=== PATIENT | female | born 1950 | race Caucasian/White ===

== ENCOUNTER → 2019-01-29 | Outpatient (CLI) | payer OTHER ==
[~2019-01-29] MED LIST: Aspir 8181 MG PO; CEFP200 PO; CIPR500 PO; Excedrin Extra1 EACH PO; IBUP400 PO; K-Dur20 MEQ PO; LEVSOD100 PO; NITR100CA PO; OMEPRAZOLE20 MG PO; ONDA4 PO; Prilosec Otc20 MG PO; THYR60 PO; XARELTO15 MG PO
== END ==
LOC: LAB 13:08 → LAB SHORT 13:08
DX: R53.83 Other fatigue (principal)
CPT/HCPCS: 84443

== ENCOUNTER 2019-02-27 12:22 | Inpatient (IN) | payer OTHER ==
[~2019-02-27] VITALS: Ht 154.9 cm; Wt 65.0 kg
[~2019-02-27 12:22] MED LIST changes: -Excedrin Extra1 EACH PO; -LEVSOD100 PO; -OMEPRAZOLE20 MG PO; -XARELTO15 MG PO
[2019-02-27 13:03] LABS: BASOPHILS ABSOLUTE AUTO 0.12 K/mm3 (0.00-0.23); BASOPHILS PERCENT AUTO 2 % (0-2); EOSINOPHILS ABSOLUTE AUTO 0.65 K/mm3 (0.00-0.68); EOSINOPHILS PERCENT AUTO 9 % (0-6); Hemoglobin 13.4 g/dL (11.5-16.0); IMMATURE GRAN ABSOLUTE AUTO 0.02 K/mm3 (0.00-0.10); IMMATURE GRAN PERCENT AUTO 0 % (0-1); LYMPHOCYTES ABSOLUTE AUTO 2.11 K/mm3 (0.84-5.20); LYMPHOCYTES PERCENT AUTO 28 % (21-46); MONOCYTES ABSOLUTE AUTO 0.46 K/mm3 (0.16-1.47); MONOCYTES PERCENT AUTO 6 % (4-13); Mean Corpuscular HGB 32.7 pg (26.0-34.0); Mean Corpuscular HGB Conc 33.5 g/dL (31.5-36.5); Mean Corpuscular Volume 98 fL (80-100); Mean Platelet Volume 8.3 fL (9.1-12.4); NEUTROPHILS ABSOLUTE AUTO 4.06 K/mm3 (1.96-9.15); NEUTROPHILS PERCENT AUTO 55 % (41-73); Platelet Count 522 K/mm3 (150-400); RDW Coefficient Variation 16.2 % (11.7-14.2); RDW Standard Deviation 58.6 fL (35.1-46.3); White Blood Cell Count 7.42 K/mm3 (4.00-11.30)
[2019-02-27 13:25] LABS: Alanine Aminotransfer (ALT/SGP 25 U/L (12-78); Albumin, Blood 3.9 g/dL (3.4-5.0); Alk Phos 70 U/L (50-136); Anion Gap 11 mmol/L (6-16); Aspartate Aminotrans (AST/SGOT 31 U/L (12-37); Bilirubin, Total 0.2 mg/dL (0.1-1.0); Blood Urea Nitrogen 8 mg/dL (8-24); Bun/Creatinine Ratio 7.8 (12.0-20.0); CO2, Blood 22 mmol/L (21-32); Calcium, Blood 9.8 mg/dL (8.5-10.1); Chloride, Blood 105 mmol/L (98-108); Creatinine, Blood 1.03 mg/dL (0.40-1.00); Glomerular Filtration Rate 57 (60-); Glucose, Blood 131 mg/dL (70-99); Potassium, Blood 2.9 mmol/L (3.5-5.5); Sodium, Blood 138 mmol/L (136-145); Total Protein, Blood 7.9 g/dL (6.4-8.2); Troponin I <0.015 ng/mL (0.000-0.040)
[2019-02-27] MEDS ORDERED: LEVSOD100 PO (15:28)
[2019-02-27 15:54] LABS: Free Thyroxine 1.08 ng/dL (0.70-1.60)
[2019-02-27 15:56] LABS: Thyroid Stimulating Hormone 9.76 uIU/mL (0.360-4.800)
[2019-02-27 16:52] LABS: Source, Urine Clean Catch
[2019-02-27 16:58] LABS: Bilirubin, Urine Neg (Neg); Blood, Urine Neg (Neg); Glucose Qualitative, Urine Neg (Neg); Ketones, Urine 3+ (Neg); Leukocyte Esterase, Urine 1+ (Neg); Nitrite, Urine Neg (Neg); Protein, Urine 1+ (Neg); Urobilinogen, Urine NORM (Normal)
[2019-02-27 17:05] LABS: Appearance, Urine Clear (Clear); Color, Urine Yellow (P-Yellow)
[2019-02-27 17:06] LABS: Bacteria Mod /hpf; Mucus Mod (0-Heavy); Red Blood Cells, Urine 0-2 /hpf (0-2); Squamous Epithelial Cells Few /hpf (Few)
[2019-02-27] MEDS ORDERED: OMEPRAZOLE20 MG PO (18:05)
[2019-02-27] MEDS ORDERED: Excedrin Extra1 EACH PO (19:13)
[2019-02-28 05:16] LABS: BASOPHILS ABSOLUTE AUTO 0.13 K/mm3 (0.00-0.23); BASOPHILS PERCENT AUTO 1 % (0-2); EOSINOPHILS ABSOLUTE AUTO 0.86 K/mm3 (0.00-0.68); EOSINOPHILS PERCENT AUTO 8 % (0-6); Hematocrit 36.9 % (33.0-51.0); Hemoglobin 11.9 g/dL (11.5-16.0); IMMATURE GRAN ABSOLUTE AUTO 0.03 K/mm3 (0.00-0.10); IMMATURE GRAN PERCENT AUTO 0 % (0-1); LYMPHOCYTES ABSOLUTE AUTO 3.16 K/mm3 (0.84-5.20); LYMPHOCYTES PERCENT AUTO 28 % (21-46); MONOCYTES PERCENT AUTO 7 % (4-13); Mean Corpuscular HGB 32.3 pg (26.0-34.0); Mean Corpuscular HGB Conc 32.2 g/dL (31.5-36.5); Mean Corpuscular Volume 100 fL (80-100); Mean Platelet Volume 8.6 fL (9.1-12.4); NEUTROPHILS ABSOLUTE AUTO 6.29 K/mm3 (1.96-9.15); NEUTROPHILS PERCENT AUTO 56 % (41-73); Platelet Count 458 K/mm3 (150-400); RDW Coefficient Variation 16.9 % (11.7-14.2); RDW Standard Deviation 61.6 fL (35.1-46.3); Red Blood Cell Count 3.68 M/mm3 (3.80-5.20); White Blood Cell Count 11.27 K/mm3 (4.00-11.30)
[2019-02-28 05:50] LABS: Bun/Creatinine Ratio 5.7 (12.0-20.0); Calcium, Blood 8.5 mg/dL (8.5-10.1); Creatinine, Blood 1.06 mg/dL (0.40-1.00); Potassium, Blood 3.4 mmol/L (3.5-5.5)
--- NOTE | 2019-02-28 07:00 | NUR ---
ASSUMED CARE OF PT- BEDSIDE REPORT COMPLETED WITH NIGHT RN JOSÉ MIGUEL. PT ADMITTED IN THE NIGHT FOR UTI AND POSSIBLE SEPSIS. PER REPORT PT HAS A SMALL PE AT THE BASE OF ONE LUNG, PT STATED SHE HAS BEEN HAVIN INCREASED SOB OVER THE PAST FEW DAYS. PT HAS A UTI WITH URINARY FREQUENCY. PT IS CURRENTLY ON IVF AT 100ML PER HOURPT STATES SHE HAS NEUROPATHY IN BLE. PT PLEASENT WITH NO S&S OF DISTRESS NOTED ON ROOM MOHSEN AT THIS TIME. WILL ASSESS SHORTLY.
--- NOTE | 2019-02-28 07:10 | NUR ---
a+o family in room, bp controlled with medication, prin in abdm remains but is controlled with medication, call light in reach, rm air able to make needs known
--- NOTE | 2019-02-28 11:14 | NUR ---
Echocardiogram completed.
--- NOTE | 2019-02-28 18:16 | NUR ---
SHIFT SUMMARY- PT HAS HAD NO ACUTE CHANGES T/O THE DAY. RECIEVED POSSITIVE BLOOD CULTURES TODAY SO NEW ABX WERE STARTED. PT APPEARS TO BE GETTING STRONGER T/O THE SHIFT SHE IS NOW INDEPENDENT TO THE BSC. DENIES ANY NEED FOR PAIN MEDICATION, STATED AT ONE POINT THAT HER BACK WAS HURTING BUT DECLINED MEDICATION. PT CURRENTLY SITTING UP IN BED, CALL LIGHT IN REACH, BROTHER AT THE BEDSIDE.
--- NOTE | 2019-03-01 04:06 | NUR ---
SHIFT SUMMARY: NO ACUTE CHANGES THIS SHIFT. PT DENIES N/V AND PAIN. J CARLOS REG DIET. SALINE LOCKED EXCEPT FOR IV ABX. PT OUT OF BED INDEPENDENTLY TO BEDSIDE COMMODE. PT REPORTS MILD BURNING DURING URINATION AND FREQUENCY. SOB WITH EXERTION. GIVEN EXCREDIN PER EMAR FOR C/O HEADACHE THIS MORNING. PT RESTING AT THIS TIME.
[2019-03-01 04:26] LABS: Hematocrit 31.2 % (33.0-51.0); Hemoglobin 10.2 g/dL (11.5-16.0); Mean Corpuscular HGB 32.7 pg (26.0-34.0); Mean Corpuscular HGB Conc 32.7 g/dL (31.5-36.5); Mean Corpuscular Volume 100 fL (80-100); Mean Platelet Volume 8.8 fL (9.1-12.4); Platelet Count 420 K/mm3 (150-400); RDW Coefficient Variation 17.2 % (11.7-14.2); RDW Standard Deviation 62.4 fL (35.1-46.3); Red Blood Cell Count 3.12 M/mm3 (3.80-5.20); White Blood Cell Count 8.28 K/mm3 (4.00-11.30)
[2019-03-01 04:47] LABS: Bun/Creatinine Ratio 4.6 (12.0-20.0); Calcium, Blood 8.4 mg/dL (8.5-10.1); Creatinine, Blood 1.08 mg/dL (0.40-1.00); Magnesium, Blood 2.1 mg/dL (1.6-2.4); Potassium, Blood 3.6 mmol/L (3.5-5.5)
--- NOTE | 2019-03-01 16:27 | NUR ---
ON PT ROUNDING PT STATED THAT HER BACK WAS UNCOMFORTABLE D/T THE BED, ASSISTED HER TO A RECLINER AT THE BEDSIDE WITH A PILLOW AND HEATING PAD ON THE AFFECTED AREA. PT STATED IT IS ALREADY FEELING BETTER, WILL CTM.
--- NOTE | 2019-03-01 17:53 | NUR ---
SHIFT SUMMARY- PT HAS HAD NO ACUTE CHANGES T/O THE SHIFT. SEE PREVIOUS NOTES FOR DETAILS. POSSIBLE DC HOME TOMORROW ON ORAL ABX AND PLAVIX.
[2019-03-02 04:40] LABS: BASOPHILS ABSOLUTE AUTO 0.11 K/mm3 (0.00-0.23); BASOPHILS PERCENT AUTO 1 % (0-2); EOSINOPHILS ABSOLUTE AUTO 1.39 K/mm3 (0.00-0.68); EOSINOPHILS PERCENT AUTO 17 % (0-6); Hematocrit 32.5 % (33.0-51.0); Hemoglobin 10.6 g/dL (11.5-16.0); IMMATURE GRAN ABSOLUTE AUTO 0.02 K/mm3 (0.00-0.10); IMMATURE GRAN PERCENT AUTO 0 % (0-1); LYMPHOCYTES ABSOLUTE AUTO 2.56 K/mm3 (0.84-5.20); LYMPHOCYTES PERCENT AUTO 30 % (21-46); MONOCYTES ABSOLUTE AUTO 0.62 K/mm3 (0.16-1.47); MONOCYTES PERCENT AUTO 7 % (4-13); Mean Corpuscular HGB 32.2 pg (26.0-34.0); Mean Corpuscular HGB Conc 32.6 g/dL (31.5-36.5); Mean Corpuscular Volume 99 fL (80-100); Mean Platelet Volume 8.8 fL (9.1-12.4); NEUTROPHILS ABSOLUTE AUTO 3.71 K/mm3 (1.96-9.15); NEUTROPHILS PERCENT AUTO 44 % (41-73); Platelet Count 428 K/mm3 (150-400); RDW Standard Deviation 61.8 fL (35.1-46.3); Red Blood Cell Count 3.29 M/mm3 (3.80-5.20); White Blood Cell Count 8.41 K/mm3 (4.00-11.30)
[2019-03-02 05:05] LABS: Bun/Creatinine Ratio 10.3 (12.0-20.0); Calcium, Blood 8.8 mg/dL (8.5-10.1); Creatinine, Blood 1.07 mg/dL (0.40-1.00); Potassium, Blood 3.6 mmol/L (3.5-5.5)
--- NOTE | 2019-03-02 05:56 | NUR ---
Rn summary: Patient is alert and oriented. She is up to BSC with minimal assist. Pt does have trouble with her Rt leg being weaker than the left. Pt has voided light yellow urine. Pt has had some SOB when getting up but feels it is getting better. Pt O2 sats 98% on room air. No resp distress. Pt has been medicated x 2 with excedrin for headache and back and leg discomfort. Tele continues to show SR in the 80's. Call light in reach. Calls appropriately.
[2019-03-02 08:41] LABS: Percent Saturation 22.3 % (15.0-50.0)
--- NOTE | 2019-03-02 11:30 | NUR ---
PER THEATRICAL DRESSER CAN D'C TELE HAS NOT BEEN ABNORMAL. CALL TO KIMBERLYN PARKER TO D'C.
--- NOTE | 2019-03-02 18:09 | NUR ---
ALERT. ORIENTED. TO BATHROOM W/WALKER AND STANDBY ASSIST. MEDICATED ONCE FOR HEADACHE W/GOOD RESULTS. IV PATENT. TELE D'C. PER P.T. BACK TO BASELINE. UNLABORED RESPIRATIONS. ABLE TO MAKE NEEDS KNOWN. WCTM.
[2019-03-03 04:52] LABS: BASOPHILS PERCENT AUTO 1 % (0-2); EOSINOPHILS ABSOLUTE AUTO 1.29 K/mm3 (0.00-0.68); EOSINOPHILS PERCENT AUTO 17 % (0-6); Hematocrit 33.9 % (33.0-51.0); Hemoglobin 10.8 g/dL (11.5-16.0); IMMATURE GRAN ABSOLUTE AUTO 0.03 K/mm3 (0.00-0.10); IMMATURE GRAN PERCENT AUTO 0 % (0-1); LYMPHOCYTES ABSOLUTE AUTO 2.22 K/mm3 (0.84-5.20); LYMPHOCYTES PERCENT AUTO 30 % (21-46); MONOCYTES ABSOLUTE AUTO 0.66 K/mm3 (0.16-1.47); MONOCYTES PERCENT AUTO 9 % (4-13); Mean Corpuscular HGB 32.2 pg (26.0-34.0); Mean Corpuscular HGB Conc 31.9 g/dL (31.5-36.5); Mean Corpuscular Volume 101 fL (80-100); NEUTROPHILS ABSOLUTE AUTO 3.16 K/mm3 (1.96-9.15); NEUTROPHILS PERCENT AUTO 42 % (41-73); Platelet Count 414 K/mm3 (150-400); RDW Standard Deviation 63.3 fL (35.1-46.3); Red Blood Cell Count 3.35 M/mm3 (3.80-5.20); White Blood Cell Count 7.46 K/mm3 (4.00-11.30)
--- NOTE | 2019-03-03 05:27 | NUR ---
Rn summary: Patient is alert and oriented. Pt is moving better and is steadier on her feet. Pt still gets a little SOB when walking to and from bathroom. Pt states she has not had a BM since admit, did have some prune juice earlier. Will get order for something in am. Pt has rested on and off. Does c/o tension BACA this am, will medicate with excedrin when available from pharmacy. VS stable. Pt uses call light approriately.
--- NOTE | 2019-03-03 05:31 | NUR ---
Rn summary: Patient is alert and oriented. She is D.D. but appropriate. Pt has walked to the x2 this shift, did pass some liguid but it was more clear yellow, does have a deal cath that is draining well. Pt abdomen is sl more distended this am. Audible Bowel tones this am. Pt denies discomfort. She needs some assist to turn and get out of bed due to large abdomen. Pt is otherwise unchanged. She has tolerated clear liquids but has only had 1 sm glass of water for us tonight. Call light in reach. Continues with clinamix at 75cc/hr.
--- NOTE | 2019-03-03 07:40 | NUR ---
ADVISED PATIENT WITH NO B.M. SINCE ADMIT. TRIED PRUNE JUICE, APPLE JUICE AND MELTED BUTTER YESTERDAY, BUT COME TO FINE OUT SHE DID NOT DRINK MUCH OF IT. MD WILL CHECK CHART AND ORDER MEDS.
--- NOTE | 2019-03-03 07:45 | NUR ---
CARE MANAGEMENT ADVISED PATIENT; HOMELESS,NO PCP AND GOING HOME ON XARELTO. THEY WILL TAKE A LOOK AT CHART TO SEE WHAT THEY CAN DO.
--- NOTE | 2019-03-03 18:30 | NUR ---
ALERT. ORIENTED. STEADY GAIT WITH WALKER IN ROOM. NO B.M SINCE ADMIT AND HAVE TRIED MEDS AND JUICE. REFUSED SUPPOSITORY AT THIS TIME. UNLABORED RESPIRATIONS. POSS D'C TOMORROW. WCTM.
[2019-03-04 03:55] LABS: BASOPHILS ABSOLUTE AUTO 0.12 K/mm3 (0.00-0.23); BASOPHILS PERCENT AUTO 2 % (0-2); EOSINOPHILS ABSOLUTE AUTO 1.32 K/mm3 (0.00-0.68); EOSINOPHILS PERCENT AUTO 16 % (0-6); Hematocrit 34.6 % (33.0-51.0); Hemoglobin 10.9 g/dL (11.5-16.0); IMMATURE GRAN ABSOLUTE AUTO 0.02 K/mm3 (0.00-0.10); IMMATURE GRAN PERCENT AUTO 0 % (0-1); LYMPHOCYTES ABSOLUTE AUTO 2.02 K/mm3 (0.84-5.20); LYMPHOCYTES PERCENT AUTO 25 % (21-46); MONOCYTES ABSOLUTE AUTO 0.71 K/mm3 (0.16-1.47); MONOCYTES PERCENT AUTO 9 % (4-13); Mean Corpuscular HGB 33.1 pg (26.0-34.0); Mean Corpuscular HGB Conc 31.5 g/dL (31.5-36.5); Mean Platelet Volume 8.5 fL (9.1-12.4); NEUTROPHILS PERCENT AUTO 49 % (41-73); Platelet Count 392 K/mm3 (150-400); RDW Coefficient Variation 16.9 % (11.7-14.2); RDW Standard Deviation 66.3 fL (35.1-46.3); Red Blood Cell Count 3.29 M/mm3 (3.80-5.20); White Blood Cell Count 8.19 K/mm3 (4.00-11.30)
[2019-03-04 04:01] LABS: Mean Corpuscular Volume 105 fL (80-100)
--- NOTE | 2019-03-04 04:14 | NUR ---
SHIFT SUMMARY PT HAS RESTED ON AND OFF T/O THE NIGHT. SHE DENIES NEEDS MOST OF THE NIGHT. SHE STILL HAS NOT BEEN ABLE TO HAVE A BM. SHE HAS ATTEMPTED SEVERAL TIMES. SHE HAS HAD SOME CRAMPING. PT OFFERED PRUNE JUICE WELL BUT DECLINED. PT HAS BEEN UP AND AMBULATING IN THE ROOM INDEPENDENTLY WITH A FWW. VITALS STABLE. IV ABX INFUSED PER ORDERS. PT BROTHER AT BEDSIDE T/O THE NIGHT. WILL CONTINUE TO MONITOR AND REPORT TO ONCOMING RN.
[2019-03-04 04:18] LABS: Alanine Aminotransfer (ALT/SGP 28 U/L (12-78); Albumin, Blood 2.8 g/dL (3.4-5.0); Albumin/Globulin Ratio 0.8 (0.8-1.8); Alk Phos 54 U/L (50-136); Anion Gap 7 mmol/L (6-16); Aspartate Aminotrans (AST/SGOT 30 U/L (12-37); Bilirubin, Total 0.1 mg/dL (0.1-1.0); Blood Urea Nitrogen 14 mg/dL (8-24); Bun/Creatinine Ratio 15.7 (12.0-20.0); CO2, Blood 24 mmol/L (21-32); Calcium, Blood 8.9 mg/dL (8.5-10.1); Chloride, Blood 112 mmol/L (98-108); Creatinine, Blood 0.89 mg/dL (0.40-1.00); Globulin, Blood 3.5 g/dL (2.2-4.0); Glomerular Filtration Rate >60 (60-); Glucose, Blood 91 mg/dL (70-99); Magnesium, Blood 2.2 mg/dL (1.6-2.4); Potassium, Blood 3.9 mmol/L (3.5-5.5); Sodium, Blood 143 mmol/L (136-145); Total Protein, Blood 6.3 g/dL (6.4-8.2)
[2019-03-04] MEDS ORDERED: XARELTO15 MG PO (11:41)
--- NOTE | 2019-03-04 13:06 | NUR ---
DISCHARGE INSTRUCTIONS REVIEWED WITH PATIENT AND QUESTIONS ANSWERED. PATIENT EXPRESSES CONCERNS WITH BILL SHE HAS NO INSURANCE. CONTACTED ADMITTING AND PATIENT IS TO STOP AT ADMITTING DESK UPON DISCHARGE. SPOKE WITH PATIENT AND HER BROTHER REGARDING STOP IN ADMISSIONS AND THEY WILL DO SO. PATIENT HAS XARELTO COUPON WHICH IS GOOD FOR 1 MONTH OF FREE MEDICATION
--- NOTE | 2019-03-04 15:10 | NUR ---
7808 DISCHARGED DISCHARGED ACCOMPANIED BY HER BROTHER. PATIENT TELLS ME THEY ARE GOING TO RENT A HOTEL ROOM TO STAY AT UNTIL ABLE TO OBTAIN AN APARTMENT. DISCUSSED WITH PATIENT THE IMPORTANCE OF TAKING MEDS PRESCRIBED AND THAT IF SHE IS UNABLE TO AFFORD MEDS SHE SHOULD CONTACT [facility] TO DISCUSSS POSSIBLE ALTERNATIVE MEDS. SPOKE WITH FEED RESEARCH AIDE AT [facility] OFFICE AND DISCUSSED THAT PATIENT IS SELF PAY AND IS CONCERNED ABOUT BEING ABLE TO PAY FOR MEDICAL ACARE AND MEDICATIONS
== END 2019-03-04 13:40 | disposition home health service (06) | DRG 871 ==
LOC: ER 12:22 → MEDS 17:48 → ENPENDDIS 03-04 11:04 → MEDS 03-04 13:40
PROVIDERS: Internal Medicine; Physician Assistant; ADMIT Internal Medicine
DX: A41.51 Sepsis due to Escherichia coli [E. coli] (principal); I26.99 Other pulmonary embolism without acute cor pulmonale; E87.2 Acidosis; N39.0 Urinary tract infection, site not specified; E03.9 Hypothyroidism, unspecified; R65.20 Severe sepsis without septic shock; Z79.82 Long term (current) use of aspirin; G43.909 Migraine, unspecified, not intractable, without status migrainosus; E87.6 Hypokalemia; D64.9 Anemia, unspecified
CPT/HCPCS: 36415; 71046; 71260; 80048; 80053; 81001; 82607; 82728; 82746; 83540; 83550; 83605; 83735; 84439; 84443; 84466; 84484; 85025; 85027; 85379; 87040; 87086; 93005; 93010; 93306; 96361; 96365-59; 97110; 97116; 97162; 97165; 97530; 97535; 99285-25; J0692; J0696; J1650; J3480; J7030; J7050; J7120; Q9967

== ENCOUNTER → 2019-06-02 | Outpatient (CLI) | payer SELFPAY ==
[~2019-06-02] MED LIST changes: +Excedrin Extra1 EACH PO; +LEVSOD100 PO; +OMEPRAZOLE20 MG PO; +XARELTO15 MG PO
[2019-06-02 14:03] LABS: BASOPHILS ABSOLUTE AUTO 0.06 K/mm3 (0.00-0.23); BASOPHILS PERCENT AUTO 1 % (0-2); EOSINOPHILS ABSOLUTE AUTO 0.61 K/mm3 (0.00-0.68); EOSINOPHILS PERCENT AUTO 6 % (0-6); Hematocrit 39.2 % (33.0-51.0); Hemoglobin 12.7 g/dL (11.5-16.0); IMMATURE GRAN ABSOLUTE AUTO 0.04 K/mm3 (0.00-0.10); IMMATURE GRAN PERCENT AUTO 0 % (0-1); LYMPHOCYTES ABSOLUTE AUTO 2.77 K/mm3 (0.84-5.20); LYMPHOCYTES PERCENT AUTO 29 % (21-46); MONOCYTES ABSOLUTE AUTO 0.59 K/mm3 (0.16-1.47); MONOCYTES PERCENT AUTO 6 % (4-13); Mean Corpuscular HGB 31.3 pg (26.0-34.0); Mean Corpuscular HGB Conc 32.4 g/dL (31.5-36.5); Mean Corpuscular Volume 97 fL (80-100); Mean Platelet Volume 9.3 fL (9.1-12.4); NEUTROPHILS ABSOLUTE AUTO 5.42 K/mm3 (1.96-9.15); NEUTROPHILS PERCENT AUTO 57 % (41-73); Platelet Count 566 K/mm3 (150-400); RDW Coefficient Variation 13.4 % (11.7-14.2); RDW Standard Deviation 48.4 fL (35.1-46.3); Red Blood Cell Count 4.06 M/mm3 (3.80-5.20); White Blood Cell Count 9.49 K/mm3 (4.00-11.30)
[2019-06-02 14:25] LABS: Albumin, Blood 3.6 g/dL (3.4-5.0); Albumin/Globulin Ratio 0.8 (0.8-1.8); Alk Phos 91 U/L (50-136); Anion Gap 7 mmol/L (6-16); Aspartate Aminotrans (AST/SGOT 20 U/L (12-37); Bilirubin, Total 0.4 mg/dL (0.1-1.0); Blood Urea Nitrogen 14 mg/dL (8-24); CHOL/HDL RATIO 3.9; CO2, Blood 22 mmol/L (21-32); Calcium, Blood 9.5 mg/dL (8.5-10.1); Chloride, Blood 112 mmol/L (98-108); Cholesterol 225 mg/dL (50-200); Globulin, Blood 4.4 g/dL (2.2-4.0); Glucose, Blood 90 mg/dL (70-99); HDL Cholesterol 57 mg/dL (>39); LDL/HDL RATIO 2.4; Low Density Lipoprotein Chol 139 mg/dL (0-110); Potassium, Blood 3.6 mmol/L (3.5-5.5); Sodium, Blood 141 mmol/L (136-145); Triglycerides 145 mg/dL (30-160); Very Low Density Lipoprot Chol 29 mg/dL (6-32)
[2019-06-02 14:29] LABS: Alanine Aminotransfer (ALT/SGP 22 U/L (12-78); Bun/Creatinine Ratio 15.6 (12.0-20.0); Glomerular Filtration Rate >60 (60-)
== END | disposition home or self-care (01) ==
LOC: LAB 13:20 → LAB SHORT 13:20
PROVIDERS: Physician Assistant
DX: Z13.220 Encounter for screening for lipoid disorders (principal); E03.9 Hypothyroidism, unspecified; R53.83 Other fatigue
CPT/HCPCS: 80053; 80061; 84443; 85025

== ENCOUNTER 2024-11-28 10:31 | Inpatient (IN) | payer SELFPAY ==
[~2024-11-28] VITALS: Ht 154.9 cm; Wt 68.8 kg
[2024-11-28] MEDS ORDERED: LEVOTHYROXINE112 M18 PO (11:34)
[2024-11-28] MEDS ORDERED: NS 1,000 ML IV SCH ×2 (11:45→16:00)
[2024-11-28 11:56] LABS: BASOPHILS ABSOLUTE AUTO 0.08 K/mm3 (0.00-0.23); BASOPHILS PERCENT AUTO 1 % (0-2); EOSINOPHILS ABSOLUTE AUTO 0.03 K/mm3 (0.00-0.68); EOSINOPHILS PERCENT AUTO 0 % (0-6); Hematocrit 37.1 % (33.0-51.0); Hemoglobin 13.2 g/dL (11.5-16.0); IMMATURE GRAN ABSOLUTE AUTO 0.07 K/mm3 (0.00-0.10); IMMATURE GRAN PERCENT AUTO 1 % (0-1); LYMPHOCYTES ABSOLUTE AUTO 1.88 K/mm3 (0.84-5.20); LYMPHOCYTES PERCENT AUTO 16 % (21-46); MONOCYTES ABSOLUTE AUTO 0.66 K/mm3 (0.16-1.47); MONOCYTES PERCENT AUTO 6 % (4-13); Mean Corpuscular HGB 33.7 pg (26.0-34.0); Mean Corpuscular HGB Conc 35.6 g/dL (31.5-36.5); Mean Corpuscular Volume 95 fL (80-100); Mean Platelet Volume 8.5 fL (9.1-12.4); NEUTROPHILS ABSOLUTE AUTO 9.31 K/mm3 (1.96-9.15); NEUTROPHILS PERCENT AUTO 77 % (41-73); Platelet Count 522 K/mm3 (150-400); RDW Coefficient Variation 16.5 % (11.7-14.2); RDW Standard Deviation 56.8 fL (35.1-46.3); Red Blood Cell Count 3.92 M/mm3 (3.80-5.20); White Blood Cell Count 12.03 K/mm3 (4.00-11.30)
[2024-11-28 12:05] LABS: Albumin, Blood 3.3 g/dL (3.4-5.0); Albumin/Globulin Ratio 0.9 (0.8-1.8); Bilirubin, Total 0.3 mg/dL (0.1-1.0); Bun/Creatinine Ratio 15.4 (12.0-20.0); Creatinine, Blood 1.17 mg/dL (0.40-1.00); Globulin, Blood 3.8 g/dL (2.2-4.0); Potassium, Blood 2.7 mmol/L (3.5-5.5); Total Protein, Blood 7.1 g/dL (6.4-8.2)
[2024-11-28] MEDS ORDERED: Diltiazem HCl 5 MG / ML 5ML Vial IV ONE (12:20)
[2024-11-28] MEDS ORDERED: Mag Sulfate 1 GM/D5% 100ML 100 ML IV ONE (12:20)
[2024-11-28] MEDS ORDERED: Potassium Chloride 10 Meq Tablet SA PO ONE (12:25)
[2024-11-28] MEDS ORDERED: Potassium Chl 20MEQ/Water100ML 100 ML IV ONE (12:25)
[2024-11-28 12:32] LABS: Source, Urine Clean Catch
[2024-11-28 12:35] LABS: Appearance, Urine Hazy (Clear); Bilirubin, Urine Neg (Neg); Blood, Urine 2+ (Neg); Color, Urine Yellow (P-Yellow); Glucose Qualitative, Urine Neg (Neg); Ketones, Urine 3+ (Neg); Leukocyte Esterase, Urine 3+ (Neg); Nitrite, Urine Neg (Neg); Protein, Urine 2+ (Neg); Urobilinogen, Urine NORM (Normal)
[2024-11-28 12:41] LABS: Bacteria Many /hpf; Squamous Epithelial Cells Few /hpf (Few); White Blood Cells, Urine 25-50 /hpf (0-5)
[2024-11-28 12:42] LABS: Transitional Epithelial Cells Rare /hpf (0-Rare)
[2024-11-28] MEDS ORDERED: CefTRIAXone Sodium 1,000 MG in NS 100 ML IV ONE (13:10)
[2024-11-28 14:32] LABS: Free Thyroxine 0.88 ng/dL (0.70-1.60)
[2024-11-28 14:34] LABS: Thyroid Stimulating Hormone 27.5 uIU/mL (0.360-4.800)
[2024-11-28] MEDS ORDERED: Ondansetron HCl 2 MG / ML 2ML Vial IV PRN (14:35)
[2024-11-28] MEDS ORDERED: Potassium Chl 20MEQ/Water100ML 100 ML IV STA (14:39)
[2024-11-28 15:56] LABS: Anti-Xa UFH, PHA Monitoring <0.10 IU/mL; International Normalized Ratio 1.03; Prothrombin Time Results 11.3 Sec (9.7-11.5)
[2024-11-28] MEDS ORDERED: Dose Adjust by Pharmacy XX STA ×2 (15:58→23:04)
[2024-11-28] MEDS ORDERED: Heparin Sodium,Porcine/0.5 NS 500 ML IV SCH (16:00)
[2024-11-28] MEDS ORDERED: Heparin Sodium 5000 Units/ML 1ML MDV IV ONE (16:00)
[2024-11-28 16:30] VITALS: BP 151/81
[2024-11-28] MEDS ORDERED: EXCEDRIN PM HE1 EACH PO (17:22)
--- NOTE | 2024-11-28 18:17 | NUR ---
CRITICAL CALLED TO HOSPITALIST TROP UP FROM [phone] GALLARDO AWARE ORDER REPEAT TROP FOR THE MORNING AND CARDOLOGY CONSULT FOR AM. ALSO PATIENT WANTS TO BE A DNR
--- NOTE | 2024-11-28 18:53 | NUR ---
SHIFT SUMMARY PATIENT AOX4 ABLE TO MAKE NEEDS KNOWN. SHE DENIES CHEST PAIN OR SOB. HER VITALS ARE STABLE BTU SHE IS TACHYCARDIC IN THE 110s BUT WILL GO UP TO THE 130s WIT EXURTION IN THE BED. SHE IS BEDREST DUE TO FALL RISK WELL TACHYCARDIA WITH ACTIVITY. SHE DOES HAVE SOME NAUSEA. WELL HEADACHE AND ABDOMINAL PAIN.
[2024-11-28 19:20] VITALS: BP 137/72
[2024-11-29] VITALS (7 sets, daily range): BP systolic 136–165; BP diastolic 71–83
[2024-11-29] MEDS ORDERED: Acetaminophen 325 MG TABLET PO PRN (02:30)
[2024-11-29] MEDS ORDERED: DiphenhydrAMINE HCL 25 MG Cap PO PRN (02:30)
[2024-11-29 05:00] LABS: Hematocrit 31.8 % (33.0-51.0); Hemoglobin 10.8 g/dL (11.5-16.0); Mean Corpuscular HGB 33.4 pg (26.0-34.0); Mean Corpuscular Volume 99 fL (80-100); Mean Platelet Volume 8.8 fL (9.1-12.4); Platelet Count 447 K/mm3 (150-400); RDW Coefficient Variation 17.6 % (11.7-14.2); RDW Standard Deviation 63.2 fL (35.1-46.3); Red Blood Cell Count 3.23 M/mm3 (3.80-5.20); White Blood Cell Count 10.86 K/mm3 (4.00-11.30)
--- NOTE | 2024-11-29 06:22 | NUR ---
SHIFT SUMMARY PT A&O X4, CALM, COOPERATIVE TO CARE. HR IN THE 90'S-100'S, SHE DENIES CP/PRESSURE, SBP STABLE. PER REPORT PT HR INCREASES WITH ACTIVITY SO SHE IS ON BEDREST AT THIS TIME. HEPRARIN GTT INFUSING PER EMAR. O2 >92% ON RA. PT OCASIONALLY DESATS WHILE ASLEEP. PTS IV INFILTRATED AT SHIFT CHANGE LAST NIGHT, ICE PACK APPLIED, BRUISING AT SITE. PT REPORTS SOME TENDERNESS IN AREA, BUT SWELLING IMPROVED. PT RESTING IN BED AT THIS TIME. CALL BONI MIX. WILL MONITOR PT AND REPORT TO ONCOMING RN.
[2024-11-29] MEDS ORDERED: Levothyroxine Sodium 0.125 MG Tab PO SCH (08:00)
[2024-11-29] MEDS ORDERED: Dose Adjust by Pharmacy XX STA (08:23)
[2024-11-29 09:00] LABS: Bun/Creatinine Ratio 11.6 (12.0-20.0); Calcium, Blood 8.6 mg/dL (8.5-10.1); Creatinine, Blood 1.29 mg/dL (0.40-1.00); Potassium, Blood 2.7 mmol/L (3.5-5.5)
[2024-11-29] MEDS ORDERED: CefTRIAXone Sodium 1,000 MG in NS 100 ML IV SCH (09:00)
[2024-11-29] MEDS ORDERED: Aspirin 81 MG Chew PO ONE (09:15)
[2024-11-29] MEDS ORDERED: Potassium Chloride 40 MEQ in NS 250 ML IV ONE (10:50)
[2024-11-29] MEDS ORDERED: Metoprolol Tartrate 25 MG Tab PO SCH (11:00)
[2024-11-29 12:04] LABS: CHOL/HDL RATIO 2.1; Cholesterol 176 mg/dL (50-200); HDL Cholesterol 84 mg/dL (>39); LDL/HDL RATIO 0.9; Low Density Lipoprotein Chol 74 mg/dL (0-110); Triglycerides 90 mg/dL (30-160); Very Low Density Lipoprot Chol 18 mg/dL (6-32)
[2024-11-29] MEDS ORDERED: Potassium Chl 20MEQ/Water100ML 100 ML IV ONE (15:00)
--- NOTE | 2024-11-29 19:31 | NUR ---
SHIFT SUMMARY PATIENT AOX4 ABLE TO MAKE NEEDS KNOWN SHE DENIES CP OR SOB. SHE IS TOLERATING HER MEALS BUT DOES HAVE SOME NAUSEA BUT SHE REFUSES PRN NAUSEA MEDS. HER VITALS WERE STABLE. SHE SPOKE WITH THE TIME ANALYSIS CLERK AND THE HOSPITALIST AT BEDSIDE.
[2024-11-30 03:42] VITALS: BP 141/76
[2024-11-30 04:50] LABS: Hematocrit 28.6 % (33.0-51.0); Hemoglobin 9.5 g/dL (11.5-16.0); Mean Corpuscular HGB 33.6 pg (26.0-34.0); Mean Corpuscular HGB Conc 33.2 g/dL (31.5-36.5); Mean Corpuscular Volume 101 fL (80-100); Mean Platelet Volume 8.5 fL (9.1-12.4); Platelet Count 354 K/mm3 (150-400); RDW Coefficient Variation 18.3 % (11.7-14.2); RDW Standard Deviation 67.4 fL (35.1-46.3); Red Blood Cell Count 2.83 M/mm3 (3.80-5.20); White Blood Cell Count 8.51 K/mm3 (4.00-11.30)
[2024-11-30 05:22] LABS: Bun/Creatinine Ratio 8.5 (12.0-20.0); Calcium, Blood 8.5 mg/dL (8.5-10.1); Creatinine, Blood 1.17 mg/dL (0.40-1.00); Magnesium, Blood 2.1 mg/dL (1.6-2.4); Potassium, Blood 3.6 mmol/L (3.5-5.5)
--- NOTE | 2024-11-30 06:18 | NUR ---
SHIFT SUMMARY ASSUMED CARE OF PT AT 1900, AFEBRILE, VSS, NO ACUTE CHANGES THIS SHIFT, PT ALERT AND ORIENTED X4, FOLLOWS COMMANDS, ABLE TO MAKE NEEDS KNOWN, NPO SINCE MIDNIGHT FOR STRESS TEST SCHEDULED THIS AM, MEDICATED X1 WITH ZPFRAN IVP FOR C/O NAUSEA, VOIDS WITHOUT DIFFICULT ON BEDPAN, PIV TO LEFT AC AND POWERGLIDE TO RIGHT UPPER ARM PATENT AND CLAMPED, SIDE RAILS UP X3 BED IN LOW POSITION,CALL LIGHT IN REACH
[2024-11-30 07:33] VITALS: BP 129/69
[2024-11-30] MEDS ORDERED: Enoxaparin 40 MG/0.4 ML SYR SC SCH (09:00)
[2024-11-30] MEDS ORDERED: Enoxaparin 60 MG/0.6 ML SYR SC SCH (09:00)
[2024-11-30] MEDS ORDERED: Aspirin 81 MG TabEC PO SCH (09:00)
[2024-11-30 12:19] VITALS: BP 129/62
[2024-11-30] MEDS ORDERED: Potassium Chloride 20 MEQ TabCR PO ONE (12:50)
[2024-11-30] MEDS ORDERED: Regadenoson 0.4 MG/5 ML SYRINGE ONE (13:32)
[2024-11-30 15:30] VITALS: BP 151/87
[2024-11-30] MEDS ORDERED: NS 1,000 ML IV SCH (15:50)
--- NOTE | 2024-11-30 18:08 | NUR ---
DAY SHIFT SUMMARY PT HAS REMAINED ALERT AND ORIENTED THIS SHIFT COMMUNICATING APPROPRIATELY W STAFF. PT'S MONITOR SHOWING SR 80'S. PT'S BP WNL AND STABLE. PT HAD ORTHOSTATIC BP'S TAKEN THIS SHIFT SHOWING SIGNIFICCANT DROP IN BP WHEN PT WAS STANDING WELL THE PT REPORTING SEVERE DIZZINESS WHILE STANDING AT THE EDGE OF THE BED, PROVISDER NOTIFIED AND IV FLUIDS ORDERED. PT'S SPO2 >92% ON RM AIR. PT HAD STRESS TEST THIS SHIFT W/O EVENTS. WILL REPORT TO ONCOMING RN.
[2024-11-30 20:00] VITALS: BP 145/87
[2024-11-30] MEDS ORDERED: Ciprofloxacin 500 MG Tab PO SCH (21:00)
[2024-12-01] VITALS (7 sets, daily range): BP systolic 124–158; BP diastolic 73–99
[2024-12-01 05:00] LABS: Bun/Creatinine Ratio 8.4 (12.0-20.0); Calcium, Blood 8.5 mg/dL (8.5-10.1); Creatinine, Blood 0.95 mg/dL (0.40-1.00); Potassium, Blood 3.9 mmol/L (3.5-5.5)
--- NOTE | 2024-12-01 06:12 | NUR ---
NOC SHIFT RM PT IS A+O X4 ABLE TO MAKE NEEDS KNOWN USES CALL LIGHT. PT ENDORSED A BACA T/O MOST OF THE SHIFT, TYLENOL WAS NOT EFFECTIVE FOR THIS. PATIENT STATES SHE TYPICALLY TREATS THIS AT HOME WITH EXCEDRIN. BP WAS ELAVATED WHEN PT WAS PAINFUL, DR. DELANEY MADE AWARE. NO NEW ORDERS. PT FLUIDS STOPPED AROUND 0130 PATIENT BECAME SHORT OF BREATH AND CORASE CRACKLES WERE NOTED IN THE BASES. PATIENT HAS SINCE STARTED BREATHING W/EASE AGAIN. PT URIENATING EVERY HOUR AROUND 100-200mls EACH TIME. PATIENT WAS UNABLE TO GET MUCH REST DURING THE NIGHT. BED IN LOWEST POSTION, CALL LIGHT IN REACH. WILL REPORT TO ONCOMING RN.
[2024-12-01] MEDS ORDERED: Ondansetron 4 MG SoluTab SL PRN (07:55)
[2024-12-01] MEDS ORDERED: Cosyntropin 0.25 MG / ML 1ML Vial IV ONE (09:20)
[2024-12-01 10:28] LABS: Percent Saturation 18.1 % (15.0-50.0)
[2024-12-01] MEDS ORDERED: Polyethylene Glycol 3350 17 gm PO PRN (14:30)
--- NOTE | 2024-12-01 17:51 | NUR ---
PT SUMMARY; ORTHOSTATIC BP'S POSITIVE THIS MORNING FROM 150 DOWN TO 120'S UPON STANDING PT REPORTS NO DIZZINESS BUT HAD SOME FATIGUED AND FEELING SHAKY. THE REST OF DANIEL VITALS HAS BEEN STABLE, PT HAS BEEN ON RA, AFEBRILE. HRR SR 80'S. PT HAS SOME MILD SOB WITH EXERTION. PT WAS ASSISTED UP IN THE RECLINER FOR LUNCH VIA WALKER NO ISSUES. PT ABLE TO PARTICIPATE WITH PHYSICAL THERAPIST RECOMMENDING HOME HEALTH. PT'S BROTHER CAME IN TO VISIT AND WAS GIVEN UPDATE REGARDING PT'S STATUS. CORTISOL TEST AND IRON PANEL DONE NO NEW ORDERS AT THIS TIME. BOWEL CARE ORDERED WELL. DECORATOR CONSULTANT HAD A DISCUSSION WITH BOTH PT AND BROTHER TO CALL MEDICARE TODAY TO GET MEDICAL INSURANCE. PT CURRENTLY ON THE PHONE WITH THEM. NO OTHER ISSUES REPORTED WILL REPORT TO ONCOMING SHIFT
[2024-12-01] MEDS ORDERED: Ciprofloxacin 500 MG Tab PO SCH (21:00)
[2024-12-02 03:40] VITALS: BP 132/92
[2024-12-02 04:02] LABS: BASOPHILS ABSOLUTE AUTO 0.08 K/mm3 (0.00-0.23); BASOPHILS PERCENT AUTO 1 % (0-2); EOSINOPHILS ABSOLUTE AUTO 0.69 K/mm3 (0.00-0.68); EOSINOPHILS PERCENT AUTO 8 % (0-6); Hematocrit 29.4 % (33.0-51.0); Hemoglobin 9.7 g/dL (11.5-16.0); IMMATURE GRAN ABSOLUTE AUTO 0.03 K/mm3 (0.00-0.10); IMMATURE GRAN PERCENT AUTO 0 % (0-1); LYMPHOCYTES ABSOLUTE AUTO 2.45 K/mm3 (0.84-5.20); LYMPHOCYTES PERCENT AUTO 27 % (21-46); MONOCYTES ABSOLUTE AUTO 0.69 K/mm3 (0.16-1.47); MONOCYTES PERCENT AUTO 8 % (4-13); Mean Corpuscular HGB 33.8 pg (26.0-34.0); Mean Corpuscular Volume 102 fL (80-100); Mean Platelet Volume 8.8 fL (9.1-12.4); NEUTROPHILS ABSOLUTE AUTO 5.31 K/mm3 (1.96-9.15); NEUTROPHILS PERCENT AUTO 57 % (41-73); Platelet Count 340 K/mm3 (150-400); RDW Coefficient Variation 18.3 % (11.7-14.2); RDW Standard Deviation 67.7 fL (35.1-46.3); Red Blood Cell Count 2.87 M/mm3 (3.80-5.20); White Blood Cell Count 9.25 K/mm3 (4.00-11.30)
[2024-12-02 04:27] LABS: Bun/Creatinine Ratio 6.5 (12.0-20.0); Creatinine, Blood 1.08 mg/dL (0.40-1.00); Potassium, Blood 3.8 mmol/L (3.5-5.5)
--- NOTE | 2024-12-02 06:16 | NUR ---
SHIFT SUMMARY PT A&O X4, CALM, COPERATIVE TO CARE. HR IN THE 90'S-100'S, SR-ST. SHE DENIES ANY CP/PRESSURE, NUMB/TINGLING. SBP STABLE. O2 >92% ON RA, SHE DENIES ANY SOB AT REST BUT DOES GET SOB WITH EXERTION. +BS, SHE REPORTS SOME ABD PAIN, MEDICATED PER EMAR. ENCOURAGED UP TO BSC TO TRY ANF GET BOWELS MOVING, PT AGREED. PT UP TO BSC TO URINATE, TOLERATED WELL. NO ACUTE CHANGES T/O SHIFT. PT RESTING IN BED AT THIS TIME. CALL LIGHT IN REACH. WILL MONITOR PT AND REPORT TO ONCOMING RN.
[2024-12-02 08:21] VITALS: BP 133/84; BP 1338/84
--- NOTE | 2024-12-02 08:37 | NUR ---
NURSING PCU DAYSHIFT: Assumed care of pt at approx 0700. A/O, pleasant, cooperative w/care. Denies any pain/discomfort at rest. C/O feeling weak, mild dizziness while sitting up, and general not feel well. Ambulates w/minimal SBA using FWW. Skin fragile/pale, intact, large bruise to RFA r/t hx of IV infiltration. Tele in place, NSR, no c/o CP/pressure, SBP 133 w/HR 90's while sitting in chair eating breakfast, orthostatics completed at beginning of shift (Lay:126/76 Sit:130/81 Sta 142/96) HR maintained 77-85 during orthostatic eval, trace BLE edema. L/S fairly cta t/o w/crackles noted to RLL, c/o continuous mild SOB, occ dry/[employer] cough, O2 sat 99% on RA. Abd SNT, BT+, c/o mild nausea this a.m. though denies need for antiemetic, expresses need to have BM but states does not feel constipated, voiding w/o difficulty. PIV x1 s/l, PG x1 s/l. No s/s of acute distress this a.m. Expresses feeling possibly well enough to discharge home today. Consumed miralax w/prune juice and stool softener. Assisted w/bathing this a.m. by PCT, currently up in chair. Awaiting rounding from PMD, denies any current questions/needs, call light in reach, cont to monitor for changes.
[2024-12-02] MEDS ORDERED: Docusate Sodium 100 MG Cap PO SCH (09:00)
[2024-12-02] MEDS ORDERED: CIPR500 PO (13:38)
[2024-12-02] MEDS ORDERED: METO25 PO (13:38)
--- NOTE | 2024-12-02 14:20 | NUR ---
NURSING PCU DISCHARGE SUMMARY: Pt continued to do well t/o the a.m. Physician/RN rounding completed, plan of care discussed, questions answered. Pt agreeable to discharge home today. Education provided regarding orthostatic hypotension, sepsis/uti, new medications. Pt and family verbalized of all written and verbal discharge instructions. PIV and PG dc'd w/caths intact. Rx's faxed to [facility]'s pharmacy per pt request. No s/s of acute distress at time of discharge. Escorted from unit via w/c, accompanied by family and PCT. Discharge completed at approx 1415.
== END 2024-12-02 14:15 | disposition home health service (06) | DRG 871 ==
LOC: ER 10:31 → PCU 14:31
PROVIDERS: Emergency Medicine; Internal Medicine; Internal Medicine Cardiovascular Disease; ADMIT Internal Medicine
DX: A41.50 Gram-negative sepsis, unspecified (principal); I21.A1 Myocardial infarction type 2; N39.0 Urinary tract infection, site not specified; N17.9 Acute kidney failure, unspecified; R65.20 Severe sepsis without septic shock; Z66 Do not resuscitate; I48.0 Paroxysmal atrial fibrillation; E03.9 Hypothyroidism, unspecified; K21.9 Gastro-esophageal reflux disease without esophagitis; G43.909 Migraine, unspecified, not intractable, without status migrainosus; E87.6 Hypokalemia; E86.0 Dehydration; I95.1 Orthostatic hypotension; E78.00 Pure hypercholesterolemia, unspecified; D50.9 Iron deficiency anemia, unspecified; N18.2 Chronic kidney disease, stage 2 (mild); R54 Age-related physical debility; Z90.49 Acquired absence of other specified parts of digestive tract; Z79.82 Long term (current) use of aspirin; Z79.899 Other long term (current) drug therapy; Z79.890 Hormone replacement therapy; Z90.721 Acquired absence of ovaries, unilateral; Z86.711 Personal history of pulmonary embolism; Z88.0 Allergy status to penicillin; Z88.1 Allergy status to other antibiotic agents
CPT/HCPCS: 36415; 70450; 71045; 71260; 78452; 80048; 80053; 80061; 80400; 81001; 82533; 82728; 83540; 83550; 83605; 83735; 84439; 84443; 84484; 85025; 85027; 85520; 85610; 87040; 87077; 87086; 87186; 93005; 93010; 93017; 93306; 96365-59; 96367-59; 97161; 97530; 99285-25; A9270; A9500; C1751; J0696; J0834; J1644; J1650; J2405; J2785; J3475; J3480; J7030; J7050; Q9967